=== PATIENT | male | born 1940 | race Caucasian/White ===

== ENCOUNTER 2016-10-15 20:59 | Inpatient (IN) | payer MEDICARE ==
[~2016-10-15] VITALS: Ht 177.8 cm; Wt 53.5 kg
--- NOTE | 2016-10-15 21:02 | ED.REPORT ---
HPI-Dyspnea / Wheezing Date of Service Oct 15, 2016 ED Provider: Dr. Alarcon 75 y/o male with a hx of DM, HTN, hypercholesterolemia and dementia presents to the ED via EMS due to worsening SOB, onset today. The pt also reports cough for a couple of days. As per the pt's friend, the pt has gotten significantly weaker and has lost 20 pounds over the last two months. As per the EMS, the pt' s temperature was 97.7 degrees celsius and he was tachycardic en route. Nursing Notes Stated Complaint: SOB Nursing Notes Reviewed: Yes Allergies: Coded Allergies: Penicillins (Verified Allergy, Unknown, 03/07/09) Uncoded Allergies: Penicillin (Allergy, Unknown, 04/25/04) pcn (rash) (Allergy, Unknown, 04/25/04) General Time Seen by MD: 21:00 Chief Complaint Shortness of breath Hx Obtained From: EMS Arrived By: Ambulance Sudden in Onset?: No Onset Occurred: 16 - 30 minutes ago Symptom Duration: Since onset Severity: Current: No pain currently Severity: Maximum: No pain Recent Healthcare: No recent doctor visit Similar Sx Previous: No Past Medical History Past Medical History heart murmur 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 Physical Exam Initial Vital Signs Vital Signs (First) Date Time Temp Pulse Resp B/P Pulse Ox O2 Delivery O2 Flow Rate FiO2 10/15/16 21:07 36.8 117 34 143/74 97 10/15/16 21:59 Nasal Cannula Initial VS: Reviewed Head / Eyes: Atraumatic, Normocephalic Extremities: Vascular intact, Neuro intact, No swelling, No tenderness Skin: Warm, Dry, No cyanosis General/Constitutional: Awake, Alert, Cooperative Alertness: Positive: Confused Appearance / Presentation: Positive: Frail Disoriented Neck: Atraumatic, Full range of motion, No JVD Cardiovascular: Regular rhythm, Heart sounds NL, No gallop, No murmurs, No rubs Heart Rate / Rhythm: Positive: Tachycardia No lower extremity edema Abdomen: Atraumatic, Soft, Non-tender, No guarding, No rebound Neurologic: No motor deficits, No sensory deficits Mental Status: Positive: Disoriented to place Interpretation & Diagnostics Lab Results Interpretation Result Diagram: 10/15/16 2100 10/15/16 2100 Test 10/15/16 21:00 10/15/16 21:20 10/15/16 21:52 White Blood Count 7.2th/mm3 (3.8-10.1) Red Blood Count 3.28mil/mm3 (4.40-5.80) Hemoglobin 10.4g/dL (13.8-17.2) Hematocrit 31.7% (41.0-50.0) Mean Corpuscular Volume 96.6fL (81-100) Mean Corpuscular Hemoglobin 31.7pg (27.0-35.0) Mean Corpuscular Hemoglobin Concent 32.8% (32.0-37.0) Red Cell Distribution Width 13.7% (12.3-15.4) Platelet Count 477bil/L (150-400) Neutrophils (%) (Auto) 80.8% (40-74) Lymphocytes (%) (Auto) 15.7% (14-46) Monocytes (%) (Auto) 3.2% (4-12) Eosinophils (%) (Auto) 0.1% (0-5) Basophils (%) (Auto) 0.1% (0-3) Hold Purple Top Tube Received (Received) D-Dimer 1.18mg/L FEU (<0.50) Hold Blue Top Tube Received (Received) Sodium Level 139mEq/L (134-144) Potassium Level 4.6mEq/L (3.5-5.2) Chloride Level 100mEq/L (97-108) Carbon Dioxide Level 22mmol/L (18-29) Blood Urea Nitrogen 35mg/dL (8-27) Creatinine 1.42mg/dL (0.76-1.27) Estimat Glomerular Filtration Rate 52mL/min (>59) Glucose Level 204mg/dL (60-99) Calcium Level 9.7mg/dL (8.5-10.1) Magnesium Level 1.7mg/dL (1.6-2.6) Total Bilirubin 0.3mg/dL (0.0-1.2) Aspartate Amino Transf (AST/SGOT) 14U/L (0-50) Alanine Aminotransferase (ALT/SGPT) 15U/L (0-44) Alkaline Phosphatase 269U/L (25-160) Troponin T 0.100ug/L (0.0-0.011) Pro-B-Type Natriuretic Peptide 1686pg/mL (0-486) Total Protein 6.8g/dL (6.4-8.4) Albumin 3.6g/dL (3.4-5.0) Procalcitonin 0.19ng/mL (0.00-0.08) Hold Red Top Tube Received (Received) Hold [place] Top Tube Received (Received) Hold Urine Received (Received) Lactic Acid Level 1.1mmol/L (0.4-2.0) ECG Interpretation ECG Interpretation: Sinus tachycardia. rate 117 Atrial premature complex Left anterior fascicular block Llow voltage, extremity leads. Time: 21:22 X-Ray Chest Interpretation Chest Xray Interpretation: IMPRESSION: No acute cardiopulmonary disease. Diffuse interstitial prominence. Dictated by: Kasandra Felipe M.D. on 10/15/2016 at 21:52 Approved by: Kasandra Felipe M.D. on 10/15/2016 at 21:53 View: Portable, 1 view Interpretation / Wet Read by: Interpret - Radiologist CT Chest Interpretation Impression: No evidence for PE. Bilateral peribronchial thickening. Infection or reactive airway disease should be considered Signed by Rj Greene M.D. 10/15/16 23:40 Study type: CT pulm angiogram Re-Eval/Medical Decision Med Decision/Clinical Course Code status: DNR and DNI Patient presents with cough and sputum with associated hypoxia, overall clinical picture seems to be pneumonia. White blood cell count and procalcitonin are unremarkable. Initial chest x-ray shows a probable retrocardiac pneumonia. Additionally his d-dimer is elevated, CT does not show pulmonary embolism however does show what again looks like a retrocardiac pneumonia. He is gently IV fluid resuscitated in the setting of an elevated d-dimer and troponin. He does not have chest pain and his EKG is overall nonischemic. Aspirin is given for his elevated troponin. Rocephin, clindamycin, and azithromycin is given. Failed the swallow eval in the ER I question whether this is an aspiration pneumonia. Patient will be admitted. Source of Hx: Old records Re-Evaluation/Progress #1: Time of Eval: 22:44 Patient Status: Mild relief Re-Evaluation/Progress Note: Rechecked pt. Discussed X-ray results and plan to admit. Pt understands and agrees with the plan for admission. All questions addressed. Re-Evaluation/Progress #2: Time of Eval: 23:30 Re-Evaluation/Progress Note: Rechecked pt. Discussed CT results. All questions answered. Consultation : Referral / Consult Name: Freddy Glynn MD Consulted With: Hospitalist Call Returned at: 23:41 Biofuels Manager: Will see patient, Agrees with eval, Agrees with plan, Accepts admit Counseled Regarding: Diagnosis, Lab results, Need for admission Discharge & Departure Impression: Primary Impression: Pneumonia Additional Impressions: Hypoxia Elevated troponin Disposition: ADMITTED TO HOSPITAL Discharge Condition All VS Reviewed: Yes Referrals: King Melara MD (PCP) (Family) Scribe Attestation Portions of this note were transcribed by Shaji Hodge. I, , personally performed the history, physical exam and medical decision-making;I reviewed and confirmed the accuracy of the information in the transcribed note. Signed by Ingrid Welch. 10/15/16 23:42 copies to: King Melara MD, Timothy S DO Oct 15, 2016 21:02 Shaji Hodge Oct 15, 2016 21:11
[2016-10-15 21:07] VITALS: BP 143/74; PULSE 117; RESP 34; O2SAT 97
[2016-10-15] MEDS ORDERED: 0.9% Sodium Chloride 1,000 ML IV ONE (21:10)
[2016-10-15 21:16] LABS: BASOPHILS % (AUTO) 0.1 % (0-3); EOSINOPHILS % (AUTO) 0.1 % (0-5); MONOCYTES % (AUTO) 3.2 % (4-12); Mean Corpuscular Hemoglobin 31.7 pg (27.0-35.0); Mean Corpuscular Volume 96.6 fL (81-100); NEUTROPHILS % (AUTO) 80.8 % (40-74); Platelet Count 477 bil/L (150-400)
[2016-10-15 21:55] LABS: Magnesium 1.7 mg/dL (1.6-2.6)
--- NOTE | 2016-10-15 21:55 | DRSVH ---
PROCEDURE: X-RAY CHEST ONE VIEW, PORTABLE ([id number]) INDICATIONS: hypoxia, cough, sputum TECHNIQUE: One view of the chest was acquired. COMPARISON: [facility], CHEST 2VW, 12/11/2015, 12:46 PM. [facility], CHEST 2VW, 05/20, 1:06 PM. FINDINGS: Surgical changes and devices: None. Lungs and pleura: There is diffuse interstitial prominence suggesting chronic interstitial lung dise ase. No pleural effusions or pneumothorax. Lungs are clear. Mediastinum: Mediastinal contours appear normal. Heart size is normal. Bones and chest wall: No suspicious bony lesions. Overlying soft tissues appear unremarkable. IMPRESSION: No acute cardiopulmonary disease. Diffuse interstitial prominence. Dictated by: Kasandra Felipe M.D. on 10/15/2016 at 21:52 Approved by: Kasandra Felipe M.D. on 10/15/2016 at 21:53
[2016-10-15 21:59] VITALS: BP 140/79; PULSE 119; RESP 26; O2SAT 97
[2016-10-15 22:03] LABS: TROPONIN T 0.1 ug/L (0.0-0.011)
[2016-10-15] MEDS ORDERED: Azithromycin Inj 500 MG in Dextrose 5% w/Vial Mate 250 ML IV ONE (23:35)
[2016-10-15] MEDS ORDERED: cefTRIAXone Inj 2,000 MG in Dextrose 5% Minibag Plus 50 ML IV ONE (23:35)
[2016-10-15] MEDS ORDERED: 0.9% Sodium Chloride 1,000 ML IV SCH (23:35)
[2016-10-15 23:43] LABS: APPEARANCE,URINE CLEAR (CLEAR,HAZY); COLOR,URINE YELLOW (YELLOW); OCCULT BLOOD,URINE SMALL (NEGATIVE); PH,URINE 5.5 (5.0-8.0); UROBILINOGEN,URINE NORMAL (NORMAL)
[2016-10-15] MEDS ORDERED: Clindamycin Inj 900 MG in IV Premix 1 EACH IV ONE (23:45)
[2016-10-16] VITALS (10 sets, daily range): BP systolic 121–146; BP diastolic 61–81; PULSE 70–114; RESP 18–27; O2SAT 97–100
[2016-10-16] MEDS: 0.9% Sodium Chloride 1,000 ML IV SCH ×2 (00:26→15:03)
[2016-10-16] MEDS ORDERED: Alum-Mag Hydrox-Simeth 30 mL Suspension PO PRN (00:30)
[2016-10-16] MEDS ORDERED: Polyethylene Glycol (PEG) 17 Gm Powder PO PRN (00:30)
[2016-10-16] MEDS ORDERED: Glucose 40% Oral Gel 15 Gm Tube PO PRN (00:55)
--- NOTE | 2016-10-16 01:00 | PCM.HPMED ---
Subjective Date of Service Oct 16, 2016 Primary Provider: Admitting Physician: Primary Care Physician: King Melara MD Attending Physician: Admit Status: From the Emergency Department Chief Complaint: Shortness of breath History of Present Illness: This is a 75-year-old male with past medical history significant for diabetes mellitus type II, hypertension, hypercholesterolemia, and dementia who presents due to shortness of breath. The patient states the shortness of breath began several days ago and has been accompanied by a week long cough. The cough is productive for sputum but he cannot recall the color of the sputum. This is also accompanied by subjective fevers and chills. The patient's friends accompanying him today state that he has also had significant weight loss over the last several months. Patient denies any chest pain or pressure, nausea, vomiting, palpitations, numbness or tingling in extremities, dysuria, hematuria. In the emergency department initial vitals were temperature 36.8 Celsius, pulse 117, respiratory rate 34, blood pressure 143/74, satting at 97% on room air. Initial laboratory values showed WBC of 7.2 with left shift, hemoglobin 10.4, hematocrit 31.7, platelets of 477. BUN 35, creatinine 1.42, glucose 284, lactic acid 1.1, alkaline phosphatase 269, troponin T 0.100, proBNP 1686, pro calcitonin 0.19. Chest x-ray showed no acute cardiopulmonary disease with diffuse interstitial prominence. D-dimer was 1.[address] angiogram showed no PE. Urinalysis showed no concerning abnormalities and had a specific gravity of 1.020. In the emergency department the patient failed a swallow study. He was treated for a aspiration pneumonia with clindamycin, ceftriaxone, and azithromycin. He received 2 boluses of normal saline. Review of Systems: Pertinent positives as noted in HPI. All other systems were reviewed and are negative Allergies Coded Allergies: Penicillins (Verified Allergy, Unknown, 03/07/09) Uncoded Allergies: Penicillin (Allergy, Unknown, 04/25/04) pcn (rash) (Allergy, Unknown, 04/25/04) Home Medications Medication list was not available for review. PMH History of heart murmur Levine's esophagus Dementia Gastroesophageal reflux disease BPH Constipation Cataracts Type II diabetes mellitus Hyperlipidemia Hypertension Surgical History Hernia repair in the past Family History Patient cannot provide any family history. Social History Hx Alcohol Use: No (rarely) Hx Substance Use: No (marijuana yrs ago.) Hx Tobacco Use: No Smoking Status: Former Smoker Exam Vital Signs Vital Sign - Last Date Time Temp Pulse Resp B/P Pulse Ox O2 Delivery O2 Flow Rate FiO2 10/15/16 21:59 119 26 140/79 97 Nasal Cannula 10/15/16 21:07 36.8 Intake and Output 10/15/16 10/15/16 10/16/16 Cumulative From/Thru 15:00 23:00 07:00 10/15/16 21:07 - 10/15/16 22:32 Intake Total 1000 ml 1000 ml Balance 1000 ml 1000 ml Intake IV Total 1000 ml 1000 ml Exam General: No acute distress, thin and frail man. Difficulty answering questions. HEENT: Normocephalic, atraumatic. External ears without defect. Pupils equal, round, and reactive to light and accommodation. Anicteric sclerae, moist conjunctivae, and no lid lag. Oropharynx free of erythema and cobble stoning with dry mucosa. Neck: Supple with full range of motion. No jugular venous distension. No bruits. No lymphadenopathy or thyromegaly. Cardiovascular: Regular rate and rhythm with no murmurs, rubs, or gallops appreciated Pulmonary:Rhonchi and crackles throughout lungs. No wheezing. Normal respiratory effort with no use of accessory muscles. Abdomen: Bowel tones present. Soft, nontender, nondistended. No hepatosplenomegaly or masses appreciated. Extremities: No clubbing, cyanosis, edema, or lymphadenopathy appreciated. Skin: Normal temperature, turgor, and texture; no rash, ulcers, or subcutaneous nodules appreciated. Neurological: Cranial nerves grossly intact. Normal muscle strength, tone, and bulk. Reflexes, coordination, and sensory function within normal limits. No known gait impairment. Psychiatric: Patient was oriented to self and place but not time. Lab and Diagnostics Result Diagram: 10/15/16 2100 10/15/16 2100 X-Rays, CTs and MRIs Chest x-ray on 10/15/2016: IMPRESSION: No acute cardiopulmonary disease. Diffuse interstitial prominence. Dictated by: Kasandra Felipe M.D. on 10/15/2016 at 21:52 CT pulmonary angiogram on 10/15/2016: No evidence for PE Bilateral peribronchial thickening. Infection or reactive airway disease should be considered. Radiologist: Rj Greene MD. Assessment & Plan This is a 75-year-old male with past medical history significant for diabetes mellitus type II hypertension, hyperlipidemia, and dementia who presents today for shortness of breath. Associated symptoms are productive cough and chills. WBC 7.2 with left shift, pro-calcitonin 0.19. CT scan showed bilateral peribronchial thickening suggestive of infection or reactive airway disease. On exam patient had rhonchi and crackles throughout lungs. Sepsis, present on admission, ongoing: -On admit patient met sepsis criteria with pulse of 117, respiratory rate of 34 , and source of pneumonia. -Patient received 2 boluses of normal saline in the emergency department -Normal saline at 70 mL per hour Community-acquired pneumonia versus aspiration pneumonia, present on admission, ongoing: -CT angiogram of chest showed lateral peribronchial thickening suggestive of infection or reactive airway disease. Procalcitonin time was 0.19. -Patient failed swallow study. NPO to swallow study. -Continue ceftriaxone, azithromycin, and clindamycin. Patient does have penicillin allergy. Elevated troponin, present on admission, ongoing: -Admit troponin was 0.100. Patient denies chest pain or pressure. Likely demand ischemia -We will trend troponins 3. Normocytic anemia, present on admission, ongoing: -Hemoglobin 10.4, hematocrit 31.7. -Unknown chronicity. Continue to monitor. Acute kidney injury, present on admission, ongoing: -Unknown if there is a chronic component to this kidney injury. On admit BUN 35 and creatinine 1.4 to -Normal saline at 70 mL per hour Type II diabetes mellitus, present on admission, ongoing: -On admit glucose is 204 -A1c is pending -Unknown home regimen. Will start Humalog low-dose correctional. Elevated proBNP, present on admission, ongoing: -ProBNP of 1686. It is possible that part of the shortness of breath. Due to heart failure but patient did not appear to be fluid overloaded. -Consider echocardiogram in morning In morning medications will need to be requested from patient's pharmacy or assisted living facility. Med req will need to be completed at that time. DVT prophylaxis with heparin. Patient is admitted under inpatient status with expected length of stay greater than 2 midnights due to severity of presenting symptoms, risk of adverse event, and complexity of treatment plan. Pain Evaluation: Adequate Pain Control Resuscitation Status: DNR/DNI:Do Not Resuscitate/Intubate Attending Statement The patient was seen and examined together with Dr. Paez on 10/15 and I agree with the history, exam and plan as outlined in the note above. Shay Paez DO Oct 16, 2016 00:17 Freddy Glynn MD Oct 16, 2016 02:49
[2016-10-16] MEDS: Heparin 5,000 Unit/mL Inj SUBQ SCH ×3 (01:34→17:27)
[2016-10-16 03:36] LABS: BASOPHILS % (AUTO) 0 % (0-3); EOSINOPHILS % (AUTO) 0 % (0-5); MONOCYTES % (AUTO) 3.2 % (4-12); Mean Corpuscular Hemoglobin 31.4 pg (27.0-35.0); Mean Corpuscular Volume 97.2 fL (81-100); NEUTROPHILS % (AUTO) 81.3 % (40-74); Platelet Count 319 bil/L (150-400)
--- NOTE | 2016-10-16 05:25 | NUR ---
Admission Pt arrived to room 3014 alert to self only, Pt unaware of time or place, and was accompanied by family and close friend who says she is the POA. Pt has no c/o pain and staff attempted to orient Pt to location but is unable to retain and requires frequent reminders. Pts visitors left and were able to provide most of answers for admission questions. Pt was left with call light in reach, bed in lowest position, and bed alarm on.
[2016-10-16] MEDS: Insulin LISPRO 300 Unit/3 mL Inj SUBQ SCH ×4 (08:00→22:00)
--- NOTE | 2016-10-16 08:57 | DRSVH ---
PROCEDURE: CT ANGIO CHEST PULMONARY EMBOLISM ([id number]) INDICATIONS: hypoxia, elevated ddimer TECHNIQUE: After the administration of intravenous contrast, 2 mm thick sections acquired from the pulmonary api jennifer to the posterior costophrenic angles. 3-dimensional maximum intensity projection (MIP) coronal a nd sagittal reformats were then acquired through the thorax. For radiation dose reduction, the follo wing was used: automated exposure control, adjustment of mA and/or kV according to patient size. COMPARISON: [facility], SPINE THORACIC 2VW, 05/20/2016, 1:08 PM. FINDINGS: Image quality: Excellent. Pulmonary arteries: Pulmonary arteries are normal in size, and demonstrate no intraluminal filling d efects to suggest central pulmonary embolism. Lungs and pleura: Patchy airspace opacities noted in the dependent portion of the lung bases bilatera lly which could represent atelectasis or pneumonia. No pleural effusions or pneumothorax. Central an d peripheral airways are patent. Mediastinum: Heart size is normal, without pericardial effusion. No mediastinal or hilar adenopathy . Thoracic aorta is normal in caliber and enhancement. Esophagus is normal in caliber, without hiat al hernia. Bones and chest wall: No suspicious bony lesions. Numerous thoracic spine compression deformities no rod which are not significantly changed compared to prior plain film radiograph series. Thyroid gland is within normal limits. No axillary or supraclavicular adenopathy. Abdomen: Visualized upper abdominal solid organs appear normal in the early arterial phase of enhanc ement. IMPRESSION: 1. No pulmonary embolus. 2. Consolidation in the dependent portion of the lungs bilaterally compatible with atelectasis versus pneumonia. Please correlate with clinical and laboratory data. 3. Atherosclerosis including the coronary vasculature. Dictated by: Hilda Coon MD, PhD on 10/16/2016 at 8:49 Approved by: Hilda Coon MD, PhD on 10/16/2016 at 8:55
[2016-10-16] MEDS: Clindamycin Inj 600 MG in IV Premix 1 EACH IV SCH ×2 (09:14→17:27)
--- NOTE | 2016-10-16 11:37 | NUR ---
Evaluation completed. Please go to "Notes" then click on "Assessments and Notes" (bottom left corner of screen). Then select appropriate discipline tab on top of screen.
[2016-10-16] MEDS ORDERED: TAMS0.4C98 PO (14:26)
[2016-10-16] MEDS ORDERED: PRAV40TA PO (14:26)
[2016-10-16] MEDS ORDERED: BUPR150T8 PO (14:26)
[2016-10-16] MEDS ORDERED: ACET325T51 PO (14:26)
[2016-10-16] MEDS ORDERED: METF500T4 PO (14:26)
[2016-10-16] MEDS ORDERED: AMLO5TAB2 PO (14:26)
[2016-10-16] MEDS ORDERED: OMEP20CA11 PO (14:26)
[2016-10-16] MEDS ORDERED: SIME120L MC (14:26)
[2016-10-16] MEDS ORDERED: MAGN400O58 PO (14:26)
[2016-10-16] MEDS ORDERED: RANI300T4 PO (14:26)
[2016-10-16] MEDS ORDERED: VENL75CA95 PO (14:26)
--- NOTE | 2016-10-16 14:29 | NUR ---
Med Rec Pt unable to recall any of his medications at home. Completed Med Rec with med list from [facility]. Paged hospitalist on [employer] [facility] to notify him that Med Rec has been completed.
--- NOTE | 2016-10-16 15:17 | PCM.PNMED ---
Subjective Date of Service Oct 16, 2016 Subjective "By whose Authority am I here?" "I am fine and I am going home"he does not answer questions about whether his chest pain, dyspnea, nausea or vomiting. He does not know why he is here in the hospital and I am not even sure he could tell me he is in the hospital. He cannot tell me where he slept last night when I query and asking quite definitively he said "in [place], where did you do sleep?"" I want a cup of coffee" Exam Vital Signs Vital Sign - Last Date Time Temp Pulse Resp B/P Pulse Ox O2 Delivery O2 Flow Rate FiO2 10/16/16 13:31 36.6 83 18 133/75 99 Nasal Cannula 4.00 Intake and Output 10/15/16 10/15/16 10/16/16 Cumulative From/Thru 15:00 23:00 07:00 10/15/16 21:07 - 10/16/16 06:45 Intake Total 1000 ml 514 ml 1514 ml Balance 1000 ml 514 ml 1514 ml Intake IV Total 1000 ml 514 ml 1514 ml Exam Gen.- A+ O 1 no apparent distress. Thin elderly male sitting up in bed Eyes- open conjunctiva clear, pupils equal nonicteric Mouth- oral mucosa moist, no exudate ENT- ears normal, nose normal Neck- supple/trach midline CVS- RRR no murmur or gallop Lungs CTA GI- NABS/NT soft Musc- moving 4 no obvious deformity Neuro- cranial nerves II through XII intact to gross examination, nonfocal Skin- warm and dry, no rashes/lesions/wounds noted Psych- pleasant and appropriate, Lab and Diagnostics Result Diagram: 10/16/16 0306 10/16/16 0306 Microbiology Nasopharyngeal PCR negative, strep antigen negative, blood cultures from admission negative still 10/16 X-Rays, CTs and MRIs CT pulmonary angiogram on 10/15/2016: No evidence for PE Bilateral peribronchial thickening. Infection or reactive airway disease should be considered. Radiologist: Rj Greene MD. Chest x-ray on 10/15/2016: IMPRESSION: No acute cardiopulmonary disease. Diffuse interstitial prominence. Dictated by: Kasandra Feliep M.D. on 10/15/2016 at 21:52 12-lead ECG Rate 117, QTC [address] segment changes suggestive of ischemia 10/15 reviewed by Steve 10/16 . Sinus tachycardia . Atrial premature complex . Left anterior fascicular block . Low voltage, extremity leads . When compared with ECG of 28-Apr-2015 20:52:44, . New conduction abnormality . Change in clinical status Assessment & Plan 75-year-old male admitted 10/16 with dementia presents today for shortness of breath. Associated symptoms are productive cough and chills (not sure from whom this history was obtained the patient does not tell me that., But it would not surprise me at all. He does not remember). He apparently lives in assisted living. It is not clear whether he is chronically on oxygen. 10/16 patient's meds ordered cannot take them as he is nothing by mouth high aspiration risk. Staff report he has got lots of secretions so maybe we will try scopolamine patch. Until I find out whether this is acute respiratory failure and/or there is resolution I am going to treat with antibiotics as started in the emergency room along with some bronchodilators. We will repeat cardiac enzymes which I believe are maybe leakage from stress because EKG is normal, and appropriate calcitonin as I am not convinced that the patient needs antibiotics however if this represents acute respiratory failure I think it would be remiss not to treat at this time. Low tolerance to discontinue antibiotics. Continuing IV antibiotics as patient is nothing by mouth. #Secretions-scopolamine patch started 10/16 #Dementia-to further have not been any significant behavioral issues but will not be at all surprise should they begin to emerge as this patient is expressing displeasure with being hospitalized and is even less happy about eating nothing by mouth because of swallowing issues. -Patient was not directable enough to even begin MO CA -Patient was so busy telling physical therapy he wanted to go home that he was unable to be directed to participate in the evaluation #Acute respiratory failure? On 4 L 99% with striae and wean him from oxygen and see the severity of illness. #Community-acquired pneumonia versus aspiration pneumonia, present on admission , ongoing: -CT angiogram of chest showed lateral peribronchial thickening suggestive of infection or reactive airway disease. Procalcitonin time was 0.19. -Patient failed swallow study. NPO to swallow study. Speech following -Continue ceftriaxone, azithromycin, and clindamycin. Patient has penicillin allergy. #Elevated proBNP, present on admission, ongoing: -ProBNP of 1686. It is possible that part of the shortness of breath. Due to heart failure but patient did not appear to be fluid overloaded. -Consider echocardiogram i if patient continues to be hypoxemic 10/16 #Sepsis,? present on admission resolved 10/16, below mentioned criteria some more like acute respiratory failure -On admit patient met sepsis criteria with pulse of 117, respiratory rate of 34 , and source of pneumonia. -Patient received 2 boluses of normal saline in the emergency department -Normal saline at 70 mL per hour #Elevated troponin, present on admission, ongoing: Seems to be trending down we will check another one in the morning along with an EKG. -Admit troponin was 0.100. Patient denies chest pain or pressure. Likely demand ischemia -We will trend troponins 3. #Normocytic anemia, present on admission, ongoing: -Hemoglobin 10.4, hematocrit 31.7., Hemoglobin 9.0 10/16 -Unknown chronicity. Continue to monitor. #Acute kidney injury? CKD?, CR 1.4 and admitted down to 1.27 10/16 not sure what baseline is. Continue gentle hydration as patient is nothing by mouth. -Unknown if there is a chronic component to this kidney injury. On admit BUN 35 and creatinine 1.4 to -Normal saline at 70 mL per hour #Type II diabetes mellitus, present on admission, ongoing: -On admit glucose is 204, blood sugar in the 100s since admission. No changes to regimen 10/16 -A1c is pending 10/16 -Unknown home regimen. Will start Humalog low-dose correctional. Prophylaxis - DVT prophylaxis with heparin. GI not indicated Disposition- From adult family home as far as I can tell, DO NOT RESUSCITATE as per chart notes VTE Mechanical Devices: Intermittant Pneumatic CD Resuscitation Status: DNR/DNI:Do Not Resuscitate/Intubate Jimmy Wilson MD Oct 16, 2016 15:17
[2016-10-16] MEDS ORDERED: Simethicone 40 mg/0.6 mL 30 mL Oral Solution PO PRN (15:30)
--- NOTE | 2016-10-16 15:38 | NUR ---
Physical Therapy, Speech Therapy, Family Communication 1049 - Physical Therapy contacted this nurse this morning to say that they had tried to work with him, but he was confused and refused. She said she'd try to come work with him again this afternoon. 1123 - Speech Therapist Corry Calvo left a message via [employer] saying that she had worked with him, but that he had failed his speech evaluation. She said that he was coughing on ice chips, his own sputum, and oral care. As a result, he still needs to remain on an NPO diet including trying to avoid by mouth medications. However, if absolutely necessary he can have oral medications crushed in applesauce. She said to provide frequent oral care which has been provided today. 1250 - Spoke to Elena his DPBASSAM and gave her an update on his condition and care. She provided identifiers for him before medical information was given. She mentioned that a person by the name of Destiny Day may try to call and get information about him, but that she is not to be given any information. She said to direct Destiny to her for updates. 1310 - Spoke to Dr. Wilson about his failed speech evaluation and increased sputum production. Asked him if he would like a Scopolamine patched ordered and placed. He said he'd look into it when rounding. It was order and will be given soon. Addendum: 10/16/16 at 1933 by FELICITA VALENTIN RN [id number] - Family came to visit him and said he was starting to get agitated and wondered if he could be given something to calm him down. Spoke to Dr. Wilson who said he would come talk to the family and order something. 1819 - Spoke to Javy from the Pharmacy about the Zyprexa Dr. Wilson had ordered to help him calm down. Asked him if it could be sent up. It was sent and given to the patient. Oral Care - In total he has received oral care at least 4 times this afternoon. Speech Therapy provided it when they assessed him and nursing staff have provided it 3 times since. Care continues.
[2016-10-16] MEDS ORDERED: Azithromycin Inj 500 MG in Dextrose 5% w/Vial Mate 250 ML IV SCH (16:00)
[2016-10-16] MEDS ORDERED: cefTRIAXone Inj 1,000 MG in Dextrose 5% Minibag Plus 50 ML IV SCH (16:00)
[2016-10-16] MEDS ORDERED: OLANZapine Zydis ODT 5 mg Tablet PO PRN (17:15)
[2016-10-16] MEDS ORDERED: Acetaminophen IV 1,000 MG in IV Premix 1 EACH IV PRN (21:30)
[2016-10-17] MEDS: Heparin 5,000 Unit/mL Inj SUBQ SCH ×2 (00:30→07:45)
[2016-10-17] MEDS: Clindamycin Inj 600 MG in IV Premix 1 EACH IV SCH ×2 (00:30→07:43)
[2016-10-17 05:05] VITALS: BP 134/76; PULSE 82; O2SAT 98
[2016-10-17] MEDS: Pantoprazole 20 mg ER24 Tablet PO SCH (05:11)
[2016-10-17] MEDS: 0.9% Sodium Chloride 1,000 ML IV SCH ×2 (05:11→10:50)
[2016-10-17 05:31] VITALS: PULSE 95
[2016-10-17 06:04] LABS: BASOPHILS % (AUTO) 0.2 % (0-3); EOSINOPHILS % (AUTO) 0.5 % (0-5); MONOCYTES % (AUTO) 3.2 % (4-12); Mean Corpuscular Hemoglobin 31.1 pg (27.0-35.0); Mean Corpuscular Volume 100.4 fL (81-100); NEUTROPHILS % (AUTO) 67.9 % (40-74); Platelet Count 315 bil/L (150-400)
[2016-10-17] MEDS: Venlafaxine XR 75 mg ER24 Capsule PO SCH (07:35)
[2016-10-17 07:38] LABS: TROPONIN T 0.084 ug/L (0.0-0.011)
[2016-10-17] MEDS: Insulin LISPRO 300 Unit/3 mL Inj SUBQ SCH ×4 (07:47→21:36)
[2016-10-17 08:00] VITALS: PULSE 95
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
[2016-10-17] MEDS ORDERED: levoFLOXacin Dose Per Pharmacist XX ONE (10:30)
[2016-10-17] MEDS: Haloperidol 5 mg/mL Inj IVPUSH PRN ×4 (10:34→17:15)
--- NOTE | 2016-10-17 10:39 | NUR ---
Palliative Care Palliative Care received order from Dr Wilson 10/16/16 (late) to assist with goals of care. Patient is a 75 year old man with dementia who was admitted 10/16/16. Currently in restraints. Patient lives at [facility]. Elena Alvarez (friend/DPOA) [phone] Palliative Care to follow. Jess Izquierdo
[2016-10-17] MEDS ORDERED: Levofloxacin 750 mg/150 mL D5W IV SCH (11:00)
[2016-10-17] MEDS ORDERED: levoFLOXacin 750 mg Tablet PO SCH (11:00)
--- NOTE | 2016-10-17 13:04 | NUR ---
Palliative care note D/A: Dr. Heredia has seen pt today. Note that pt has been somewhat distressed today and is now requiring medication to help soothe him. Dr. Heredia has had lengthy discussion today POA ( both medical and financial) Elena Khan ([phone]). Pt is noted to have significant dementia. She indicates that this is not a situation in which he would find wish to remain as he has long been an intellectual man. 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 Pt mother after 4 years of vegetative dementia and this was impactful for him. Elena would like pt to go on to hospice services and is hopeful that he can return to his place at [facility]. Dr. Heredia has spoken to [facility] about pt history/relatives and has learned that they wish to do a bedside assessment prior to consideration of return. Phone call to [facility] [employer] and have left message regarding above. P: Palliative care to follow. Trina SINGH, CCM
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
[2016-10-17] MEDS ORDERED: LORazepam 1 mg Tablet PO PRN (13:20)
--- NOTE | 2016-10-17 13:49 | NUR ---
Social Work: Brief Note MANAGER LIFE acknowledges SNF vs HH vs hospice order. MANAGER LIFE requested Hospice information visit for pt. MANAGER LIFE will continue to follow. ABNER Tam
--- NOTE | 2016-10-17 16:07 | NUR ---
Social Work: Attempted Initial Assessment D: EMR reviewed. Pt is a 75 y/o male admitted for hypoxia, pneumonia, and elevated troponin. SW met with pt at bedside while pt was in 2-point restraints. Pt was not oriented to time, place, but oriented to self. Pt has dementia. Pt is not an accurate historian at this time. SW attempted to find out where pt lives or if pt knew of any family of friends to contact. Pt stated "I live here (at the hospital) now and I don't know of any family or friends" SW found a family member by the name of Elena Khan in pt's EMR, but no phone number or address. SW read MD note in H&P that pt might come from an Adult Family Home. SW placed T/C to pt's PCP (King Melara MD ) to find out more information about where pt lives and if he has any family/friends in the area. Sierra from Dr. Romo office believes that pt lives at [facility] Sierra provided pt's DPOA information: Elena Khan ([phone]). SW will follow up with DPOA to find out more information regarding pt. A: Pt who has dementia at baseline. P: SW to contact pt's DPOA and [facility] to confirm pt's living arrangement and needs. YAKELIN will continue to follow. ABNER Blanton Addendum: 10/17/16 at 1647 by JACKIE LION YAKELIN placed T/C to Karen DE LA GARZA) from [facility] and confirmed pt moved in 08/11/2016. Karen stated that pt has had 9 falls in the time he has been at [facility] Karen stated that no one witnessed the 9 falls, but that the pt stated he fell. YAKELIN asked Karen if she reported these falls to the Department of Health. Karen stated that they don't need to report falls if pt is not injured. Pt was not injured. Karen stated that pt has lost 17 pounds since he has lived at facility even though he eats a "tremendous amount." Karen stated that the facility was reconsidering him living at facility due to his falls and rapid weight loss. Karen stated that pt will need a bedside assessment before returning to facility. Karen will need at least 48 hours notice before the assessment can be done as she only works part-time. Karen will be the only person to conduct the bedside assessment. Karen stated that pt's DPOA visits him every day and that SW should continue to try to contact DPOA for more information. YAKELIN left voicemail with DPOA and confirmed phone number with Karen. SW will continue to follow. SW must obtain DPOA ppw confirming DPOA is actual DPOA before discussing pt care. SW will continue to reach DPOA and retrieve ppw confirming DPOA. ABNER Blanton
--- NOTE | 2016-10-17 16:41 | NUR ---
Received verbal order from MD to cancel ST. Pt transitioned to comfort care.
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
[2016-10-17] MEDS: Glycopyrrolate 0.2 MG/ML 1mL Inj IVPUSH PRN (17:54)
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
[2016-10-17 19:01] VITALS: BP 128/75; PULSE 87
[2016-10-17 23:44] VITALS: BP 155/82; PULSE 96; RESP 14; O2SAT 92
[2016-10-18] MEDS: Pantoprazole 20 mg ER24 Tablet PO SCH (06:05)
--- NOTE | 2016-10-18 06:20 | NUR ---
Combativeness Pt has remained combative with all cares this shift. Pt has removed all blankets, and clothing including his brief and continues to remove them despite staff attempting to return items to Pt. Pt has been turned side to side as best possible but Pt wiggles off pillows after a few minutes of being unsupervised. With last change of bedding for the shift, Pt was quite combative with staff. Pt was kicking and pulling at staff's clothing and would not fallow direction. soft wrist restrains positions have been rotated all shift and pt remains in restraints for his own safety.
[2016-10-18 06:27] VITALS: BP 152/79; PULSE 99; RESP 18; O2SAT 96
[2016-10-18] MEDS: levoFLOXacin 500 mg Tablet PO SCH (07:30)
[2016-10-18] MEDS: Insulin LISPRO 300 Unit/3 mL Inj SUBQ SCH ×4 (08:00→21:00)
[2016-10-18] MEDS: Venlafaxine XR 75 mg ER24 Capsule PO SCH (08:30)
[2016-10-18] MEDS: OLANZapine Zydis ODT 5 mg Tablet PO SCH ×2 (08:30→20:08)
[2016-10-18] MEDS: Haloperidol 5 mg/mL Inj IVPUSH PRN ×3 (10:06→16:19)
--- NOTE | 2016-10-18 10:45 | NUR ---
Social Work: Brief Note PERSONAL BANKING ASSISTANT received phone call from [facility] that pt and DPOA will be met at 1:00pm today. PERSONAL BANKING ASSISTANT will follow up with DPOA and [facility] following the meeting to discussed d/c planning. ABNER Tam
--- NOTE | 2016-10-18 11:22 | NUR ---
AM meds Patient refused all AM medications.
[2016-10-18] MEDS: Glycopyrrolate 0.2 MG/ML 1mL Inj IVPUSH PRN (12:23)
[2016-10-18 13:39] VITALS: BP 136/84; PULSE 128; RESP 18; O2SAT 96
--- NOTE | 2016-10-18 15:14 | NUR ---
Social Work: Continued d/c planning Data: Pt is on day 2 of hospitalization. EMR reviewed. CLERICAL SUPERVISOR notified by [facility] that pt and DPOA have signed consents and pt is scheduled to open with hospice on Friday between 2-3pm. CLERICAL SUPERVISOR also notified by Hospice that pt's DPOA states they are wanting pt to move to the [facility] and is looking into [facility] in that area. CLERICAL SUPERVISOR checked pt's room to see if DPOA was there, she is not. CLERICAL SUPERVISOR called pt's DPOA, Elena, no answer, left a voice mail requesting a call back regarding d/c planning. It is possible that pt's caregiving needs may be better served at a memory care facility. CLERICAL SUPERVISOR awaiting phone call from pt's DPOA and will discuss [facility] and memory care facilities. CLERICAL SUPERVISOR will continue to follow. Assessment: Pt with dementia at baseline from [facility]. Plan: Pt will d/c to [facility] or memory care facility. Per palliative, pt's DPOA is looking into [facility] and memory care. CLERICAL SUPERVISOR awaiting phone call from pt's DPOA and will complete initial assessment and discuss [facility] and memory care facilities. CLERICAL SUPERVISOR will continue to follow. ABNER Tam
--- NOTE | 2016-10-18 15:18 | NUR ---
SUZIE given over voice mail ABNER left SUZIE on pt's DPOA voice mail. Awaiting phone call back. ABNER Tam Addendum: 10/18/16 at 1545 by EULA NGO SS Pt's DPOA returned phone call. Expressed understanding of SUZIE. Verbal permission given to sign. ABNER Tam
--- NOTE | 2016-10-18 15:52 | NUR ---
Social Work: Initial Assessment Data: Pt is a 75 y/o male admitted for hypoxia, pneumonia, and elevated troponin. Pt's PCp is Dr Melara, pt's insurance is [facility] of [place] Medicare. EMR reviewed. Readmit score is 3. MUTTON PUNCHER spoke with pt's DPOA on the phone as pt has dementia. Pt's DPOA is Elenagiovana Khan, she states pt lives at [facility]. Elena was present for the hospice info visit today and signed consents. She states that pt uses a walker at baseline, does not drive, has no hx of HH or SNF, no LTC or VA benefits. She states that they are wanting pt to move to [place] to a higher level of assistance and for family and friends to be able to visit him more often. Elena states that she is looking into [email or web address] ([phone]) and [facility] ([phone]) in [place]. She plans to call them tonight and set up a visit time tomorrow. Elena states she will call MUTTON PUNCHER on 10/19 with a preference between to two and MUTTON PUNCHER will follow up with the facility regarding assessment of pt and getting clinicals to them. MUTTON PUNCHER will continue to follow. Assessment: Pt from [facility] with dementia. Plan: Pt will d/c to [facility] in [place], either [facility] or [email or web address] likely. Elena states she will call MUTTON PUNCHER on 10/19 with a preference between to two and MUTTON PUNCHER will follow up with the facility regarding assessment of pt and getting clinicals to them. Hospice can open with pt on Friday between 2-3pm. MUTTON PUNCHER will continue to follow. ABNER Tam Addendum: 10/18/16 at 1558 by EULA LION Amended: Links added.
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
--- NOTE | 2016-10-18 18:07 | NUR ---
Meds, GI and restraints Confusion remains and refusing to wear clothing or briefs. No violent behaviors observed. IM haldol and rubinol admin this shift, d/t refusal to take oral medications and IV access is no longer able to be obtained. Oral meal attempted, food unable to be swallowed and resulted in emesis. Constipation reported, rounded abd. Restraints remain in place with frequent rounding and oral care.
[2016-10-18 20:07] VITALS: BP 156/81; PULSE 114; RESP 18; O2SAT 93
[2016-10-19] MEDS: Glycopyrrolate 0.2 MG/ML 1mL Inj IVPUSH PRN ×2 (00:17→16:37)
[2016-10-19 05:31] VITALS: BP 149/88; PULSE 117; RESP 18; O2SAT 93
--- NOTE | 2016-10-19 05:39 | NUR ---
BEHAVIOR Pt compliant with all care--no aggression noted. With q2h restraint check, pt was not combative and followed direction with AROM. Pt mumbles, but makes coherent sentences and can hold conversations. Noted pt is confused at times and spoke about meeting a man outside and not being able to make an appointment this morning. Pt reoriented to situation. Pt took medications with applesauce and finished eating applesauce. Noted to have a very audible swallow, took multiple swallows to clear food. Pt only c/o SOB r/t secretions once--Robinul given once. Frequent rounding.
[2016-10-19] MEDS: Pantoprazole 20 mg ER24 Tablet PO SCH (06:14)
[2016-10-19] MEDS: Insulin LISPRO 300 Unit/3 mL Inj SUBQ SCH ×4 (08:00→22:00)
[2016-10-19] MEDS: levoFLOXacin 500 mg Tablet PO SCH (08:39)
[2016-10-19] MEDS: Venlafaxine XR 75 mg ER24 Capsule PO SCH (08:41)
[2016-10-19] MEDS: OLANZapine Zydis ODT 5 mg Tablet PO SCH ×2 (08:41→20:30)
[2016-10-19 13:00] VITALS: BP 145/84; PULSE 125; RESP 20; O2SAT 93
--- NOTE | 2016-10-19 14:45 | NUR ---
Social Work Note: Continued Discharge Planning Data& Assessment: SW attempted to call pt SONYA Parker ([phone]) regarding CUSTODIAL preference and final discharge plan. SW left a voicemail with a request to call back to discuss discharge planning. SW to continue to follow. Plan: Anticipated discharge to CUSTODIAL with Hospice to open on Friday between 2-3p.m. SW to follow up with SONYA Parker regarding CUSTODIAL preference. SW to continue to follow. ABNER Thompson
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
[2016-10-19 15:37] VITALS: BP 125/81; PULSE 132; RESP 24; O2SAT 93
--- NOTE | 2016-10-19 16:46 | NUR ---
Swallow/diet & PO change Due to pt swallow difficulty diet changed by publicity writer to puree with HT liquids for safety. Pills crushed in sauce have been taken today by pt but remains in pt mouth for a few minutes, and when he does swallow the pt clears his throat with a wet, weak cough. Wet upper respiratory sounds have been audible today, PRN robinul IM given and scopalamine patch will be applied as soon as arrives from pharmacy. aware.
--- NOTE | 2016-10-19 20:00 | NUR ---
discontinued restraints patient quiet. not agitated. discontinued restraints.
[2016-10-19 20:25] VITALS: BP 128/78; PULSE 125; RESP 22; O2SAT 94
[2016-10-19 21:42] VITALS: BP 80/58; PULSE 140; RESP 40; O2SAT 85
[2016-10-19] MEDS ORDERED: Morphine 20 mg/mL Oral Syringe SL/PO PRN (22:00)
--- NOTE | 2016-10-19 22:28 | NUR ---
comfort care / respiratory distress rr 40. 84% 5 liters oxymask. labored breathing. wet breath sounds. fever 100.3 cool lower extremities. low bp. patient not responsive. unable to give evening medications notified dr drew. received orders for oral morphine concentrate. notified uri (first to contact). she will be coming in. patient repositioned. given morphine. tolerated. care ongoing
--- NOTE | 2016-10-19 23:21 | NUR ---
communication uri mast at bedside. answered questions about and dying. uri related that she has already had 2 adult children . it appears that is difficult for her. 2 additional family members arrived . provided supportive care. chairs at bedside. offered water or tea. patient cont. to have labored breathing but no signs of distress. care ongoing.
--- NOTE | 2016-10-20 00:50 | NUR ---
family request uri requests that morphine be given more frequently. discussed with uri earlier I the purpose of morphine, and end of life patient's rr 40. labored breathing. wetness has diminished. paged dr sharif with above request . Addendum: 10/20/16 at 0138 by FLAKITA PATEL RN per Dr Sharif, oral morphine frequency increased to every hour prn. patient medicated with morphine 2 mg oral. explained to family. care ongoing.
[2016-10-20] MEDS: Morphine 20 mg/mL Oral Syringe SL/PO PRN ×2 (01:17→02:22)
--- NOTE | 2016-10-20 02:43 | NUR ---
fever patient's skin is very hot. axillary temp 39.[address] drew of above. requested tylenol suppository. care ongoing. Addendum: 10/20/16 at 0257 by FLAKITA PATEL RN received order, tyelnol given DE
--- NOTE | 2016-10-20 03:10 | NUR ---
patient . notified dr drew and nursing sewing department supervisor. family at bedside. given supportive care.
--- NOTE | 2016-10-20 03:30 | NUR ---
belongings pants shirt and shoes, uri said she did NOT want them. discarded.
--- NOTE | 2016-10-20 08:02 | PCM.DC.MEX ---
Discharge Summary Date of Service Oct 20, 2016 Dates of Hospitalization Date of Hospital Admission Oct 16, 2016 at 00:45 Date of Expiration: Oct 20, 2016 Time of Expiration: 03:10 Providers: Admitting Physician: Freddy Glynn MD Primary Care Physician: King Melara MD Attending Physician: Freddy Glynn MD Diagnosis at Time of # on 10/20/16 at 3:10 AM # Suspected acute sepsis with source acute aspiration vs community acquired pneumonia, present on admission # Suspected acute community-acquired pneumonia vs aspiration pneumonia # Elevated troponin, present on admission - Likely demand ischemia # Normocytic anemia, present on admission # Acute kidney injury, present on admission # Type II diabetes mellitus, present on admission - HgA1c 7.2 # Chronic dementia with acute agitation. Consultations 1. Palliative care Procedures XRay, CTs & MRIs CT pulmonary angiogram on 10/15/2016: No evidence for PE Bilateral peribronchial thickening. Infection or reactive airway disease should be considered. Radiologist: Rj Greene MD. Chest x-ray on 10/15/2016: IMPRESSION: No acute cardiopulmonary disease. Diffuse interstitial prominence. Dictated by: Kasandra Felipe M.D. on 10/15/2016 at 21:52 Brief History Per admission H&P: This is a 75-year-old male with past medical history significant for diabetes mellitus type II, hypertension, hypercholesterolemia, and dementia who presents due to shortness of breath. The patient states the shortness of breath began several days ago and has been accompanied by a week long cough. The cough is productive for sputum but he cannot recall the color of the sputum. This is also accompanied by subjective fevers and chills. The patient's friends accompanying him today state that he has also had significant weight loss over the last several months. Patient denies any chest pain or pressure, nausea, vomiting, palpitations, numbness or tingling in extremities, dysuria, hematuria. In the emergency department initial vitals were temperature 36.8 Celsius, pulse 117, respiratory rate 34, blood pressure 143/74, satting at 97% on room air. Initial laboratory values showed WBC of 7.2 with left shift, hemoglobin 10.4, hematocrit 31.7, platelets of 477. BUN 35, creatinine 1.42, glucose 284, lactic acid 1.1, alkaline phosphatase 269, troponin T 0.100, proBNP 1686, pro calcitonin 0.19. Chest x-ray showed no acute cardiopulmonary disease with diffuse interstitial prominence. D-dimer was 1.[address] angiogram showed no PE. Urinalysis showed no concerning abnormalities and had a specific gravity of 1.020. In the emergency department the patient failed a swallow study. He was treated for a aspiration pneumonia with clindamycin, ceftriaxone, and azithromycin. He received 2 boluses of normal saline. Hospital Course # Suspected acute sepsis, present on admission. Clinically appears resolved. -On admit patient met sepsis criteria with pulse of 117, respiratory rate of 34 , and source of pneumonia. -Patient received 2 boluses of normal saline in the emergency department # Suspected acute community-acquired pneumonia, present on admission but in retrospect he may have had - CT angiogram of chest showed lateral peribronchial thickening suggestive of infection or reactive airway disease. - Changed antibiotics to Levofloxacin for further ease (dose per pharmacy) per discussion with palliative care and DPOA's wishes # Elevated troponin, present on admission - Likely demand ischemia - No further workup given goals of care # Normocytic anemia, present on admission -Unknown chronicity. # Acute kidney injury, present on admission. Resolved # Type II diabetes mellitus, present on admission - HgA1c 7.2 # Secretions - Scopolamine patch started 10/16 # Chronic dementia with acute agitation. - treated with supportive care per palliative care consult recommendations # Goals of care - Palliative care consulted. - Per palliative care discussion with DPOA patient was transitioned to comfort care and hospice care on 10/17/16 # Symptom management (Pain/other) - Per palliative care - Olanzapine scheduled and haloperidol prn - Continued his usual venlafaxine. - Morphine and oxycodone for pain relief as needed. - Lorazepam as needed. Per nursing report patient's morphine was increased on the night of 10/19 per DPOA request and by early AM of 10/20/16 (at 3:10 am) patient . Exam Test 10/15/16 21:00 10/15/16 21:20 10/15/16 21:52 10/16/16 03:06 Hold Purple Top Tube Received (Received) D-Dimer 1.18mg/L FEU (<0.50) Hold Blue Top Tube Received (Received) Hemoglobin A1c 7.2% (4.8-5.6) Magnesium Level 1.7mg/dL (1.6-2.6) Pro-B-Type Natriuretic Peptide 1686pg/mL (0-486) Hold Red Top Tube Received (Received) Urine Color Yellow (YELLOW) Urine Appearance Clear (CLEAR,HAZY) Urine pH 5.5 (5.0-8.0) Urine Specific [place] 1.020 (1.003-1.035) Urine Protein 30mg/dL (NEG,TRACE) Urine Glucose (UA) Negativemg/dL (NEGATIVE) Urine Ketones Negativemg/dL (NEGATIVE) Urine Occult Blood Small (NEGATIVE) Urine Nitrite Negative (NEGATIVE) Urine Bilirubin Negative (NEGATIVE) Urine Urobilinogen Normalmg/dL (NORMAL) Urine Leukocyte Esterase Negative (NEGATIVE) Urine RBC 3-10/hpf (0-2) Urine WBC 0-5/hpf (0-5) Urine Epithelial Cells Few/hpf (NONE-MOD) Urine Crystals None seen (NONE SEEN) Urine Bacteria Few/hpf (NONE-FEW) Urine Hyaline Casts None/lpf (NONE) Urine Granular Casts Occasional (NONE SEEN) Urine Waxy Casts None seen (NONE SEEN) Urine Red Blood Cell Casts None seen (NONE SEEN) Urine White Blood Cell Casts None seen (NONE SEEN) Urine Mucus None seen (None Seen) Urine Trichomonas None seen (NONE SEEN) Urine Yeast None (NONE SEEN) Urinalysis Comment None Urine Culture Reflexed Not indicated Hold Urine Received (Received) Urine Legionella pneumophilia Ag Negative (Negative) Lactic Acid Level 1.1mmol/L (0.4-2.0) Total Bilirubin 0.2mg/dL (0.0-1.2) Aspartate Amino Transf (AST/SGOT) 11U/L (0-50) Alanine Aminotransferase (ALT/SGPT) 12U/L (0-44) Alkaline Phosphatase 215U/L (25-160) Total Protein 4.8g/dL (6.4-8.4) Albumin 3.0g/dL (3.4-5.0) Test 10/16/16 16:05 10/17/16 05:40 Hold [place] Top Tube Received (Received) White Blood Count 4.4th/mm3 (3.8-10.1) Red Blood Count 2.64mil/mm3 (4.40-5.80) Hemoglobin 8.2g/dL (13.8-17.2) Hematocrit 26.5% (41.0-50.0) Mean Corpuscular Volume 100.4fL (81-100) Mean Corpuscular Hemoglobin 31.1pg (27.0-35.0) Mean Corpuscular Hemoglobin Concent 30.9% (32.0-37.0) Red Cell Distribution Width 13.9% (12.3-15.4) Platelet Count 315bil/L (150-400) Neutrophils (%) (Auto) 67.9% (40-74) Lymphocytes (%) (Auto) 28.0% (14-46) Monocytes (%) (Auto) 3.2% (4-12) Eosinophils (%) (Auto) 0.5% (0-5) Basophils (%) (Auto) 0.2% (0-3) Sodium Level 147mEq/L (134-144) Potassium Level 4.0mEq/L (3.5-5.2) Chloride Level 110mEq/L (97-108) Carbon Dioxide Level 23mmol/L (18-29) Blood Urea Nitrogen 22mg/dL (8-27) Creatinine 1.21mg/dL (0.76-1.27) Estimat Glomerular Filtration Rate 62mL/min (>59) Glucose Level 99mg/dL (60-99) Calcium Level 8.5mg/dL (8.5-10.1) Troponin T 0.084ug/L (0.0-0.011) Procalcitonin 0.33ng/mL (0.00-0.08) Microbiology Results Nasopharyngeal PCR negative, strep antigen negative, blood cultures from admission negative still 6/7 copies to: King Melara MD, Masoud Oct 20, 2016 08:02
== END 2016-10-20 03:10 | disposition expired | DRG 871 ==
LOC: EDUNIT# 20:59 → SED 20:59 → EDBD 20:59 → MPC 10-16 00:45
PROVIDERS: ADMIT Hospitalist; ATTEND Hospitalist
DX: A41.9 Sepsis, unspecified organism (principal); J69.0 Pneumonitis due to inhalation of food and vomit; J96.01 Acute respiratory failure with hypoxia; N17.9 Acute kidney failure, unspecified; I24.8 Other forms of acute ischemic heart disease; E11.9 Type 2 diabetes mellitus without complications; I10 Essential (primary) hypertension; F03.90 Unspecified dementia, unspecified severity, without behavioral disturbance, psychotic disturbance, mood disturbance, and anxiety; E78.5 Hyperlipidemia, unspecified; Z66 Do not resuscitate; D64.9 Anemia, unspecified; Z51.5 Encounter for palliative care